=== PATIENT | female | born 1985 | race Two or more races ===

== ENCOUNTER 2025-05-18 10:10 | Outpatient (RCR) | payer MEDICAID, SELFPAY ==
--- NOTE | 2025-05-18 13:32 | CTCFLWUP_ITS ---
Patient: DAVIN BERNAL : 1985 Page 2 of 2 Hematology note for consult DATE OF SERVICE: 05/18/2025 NAME: DAVIN BERNAL ACCOUNT: [id number] : 1985 AGE: 40 HISTORY OF PRESENT ILLNESS: Patient is a 40-year-old woman with a history of excessive menorrhagia. Patient had 5 children alive and required blood transfusion during one of the deliveries. Patient is not taking any IV iron. Patient takes oral iron. Patient complains of fatigue memory loss chest pain shortness of breath and pica. Do not have black-colored stools. Patient had leg pain And had an MRI and was seen by orthopedics. Patient is referred to us with the concern for myelodysplasia syndrome OTHER MEDICAL HISTORY/CONDITIONS: FAMILY HISTORY: SOCIAL HISTORY: BUSINESS PERFORMANCE SPECIALIST HISTORY: MEDICATIONS: 1. None Medications Last Reconciled by Magi Berkowitz MA on 05/18/2025 ALLERGIES: REVIEW OF SYSTEMS: A complete 14-point review of systems was performed and is negative except as noted in interval history. PHYSICAL EXAMINATION: VITAL SIGNS: PAIN: 2 - Mild pain ECOG Performance Status: 2 - Symptomatic; ambulatory; capable of self-care; >50% of waking hrs. not in bed GENERAL APPEARANCE: Appears well, in no apparent distress, appropriately interactive. HEENT: Normocephalic, no temporal wasting, normal conjunctiva, no scleral icterus, normal hearing, lips without lesions, neck normal range of motion. CARDIOVASCULAR: Not assessed. PULMONARY: Normal respiratory effort, no respiratory distress or use of accessory muscles, speaking in full sentences, no tachypnea. EXTREMITIES: No pedal edema or cyanosis. SKIN: Normal skin appearance. NEUROLOGIC: Alert and oriented x4. PSHYCHIATRIC: Appropriate affect, mood normal, behavior normal, intact thought and speech. LABORATORY DATA: I have personally reviewed and interpreted each of the patient?s relevant lab tests, abnormal findings are below: Date ASSESSMENT/PLAN: #1 anemia from iron deficiency #2Iron deficiency from blood loss Patient had very low iron. Patient is symptomatic Will start on intravenous iron as patient already been on oral iron and is not responding Will repeat labs Iron ordered Once patient has iron infusion completed at that time will consider bone marrow biopsy if needed Her white cell count or differential is okay ORDERS: Order # Description [id number] Follow Up 4 Week [id number] Iron Panel + Ferritin + Reticulocyte Count [id number] Comprehensive Metabolic Panel - 12 + CBC with Auto Diff [id number] Vitamin B-12 + Folic Acid; Serum + Lactate Dehydrogenase (LDH) + Assay Of Haptoglobin Quant RETURN TO CLINIC: I reviewed the diagnosis, prognosis, and recommended treatment/procedure options with the patient (and/or their legal customer contact representative), including the potential benefits, risks, side effects and alternative therapies. We also discussed the option of no treatment and the possibility of clinical trial participation, if applicable. All questions were addressed, and they demonstrated understanding. They provided informed consent to proceed with the proposed plan of care. BILLING AND COMPLIANCE: I reviewed external records from providers outside my specialty as summarized above. I spent a total of 50 minutes on this patient?s care on the day of their visit excluding time spent related to any billed procedures. This time includes time spent with the patient as well as time spent documenting in the medical record, reviewing patients records and tests, obtaining history, placing orders, communicating with other healthcare professionals, counseling the patient, family or caregiver, and/or care coordination for the diagnoses above. Electronically Signed by: Linwood Villatoro MD T: 1:29 PM CC: PCP: Referring: Rina Pyle This document was completed utilizing speech recognition software. Grammatical errors, random word insertions, pronoun errors, and incomplete sentences are an occasional consequence of this system due to software limitations, ambient noise, and hardware issues. Any formal questions or concerns about the content, text or information contained within the body of this dictation should be directly addressed to the provider for clarification.
== END 2025-05-31 23:59 | disposition home or self-care (01) ==
LOC: SCTC 10:10
PROVIDERS: PCP Nurse Practitioner Family; Referring Provider Nurse Practitioner Family; Visit Provider Internal Medicine Hematology & Oncology
DX: D50.9 Iron deficiency anemia, unspecified (principal); N92.0 Excessive and frequent menstruation with regular cycle
CPT/HCPCS: 99204; G0463

== ENCOUNTER 2025-06-15 14:08 | Outpatient (RCR) | payer MEDICAID, SELFPAY | END 2025-07-01 23:59 | disposition home or self-care (01) | LOC: SCTC 14:08 | PROVIDERS: PCP Nurse Practitioner Family; Referring Provider Nurse Practitioner Family; Visit Provider Internal Medicine Hematology & Oncology | DX: D50.0 Iron deficiency anemia secondary to blood loss (chronic) (principal) | CPT/HCPCS: 96365; 96375; 99424; 99425; J1200; J1756; J2919; J3490; J7040 ==